=== PATIENT | male | born 1950 | race Caucasian/White ===

== ENCOUNTER 2017-05-06 15:53 | Inpatient (IN) ==
[~2017-05-06 15:53] MED LIST: *HR* Heparin 10,000 UNIT/10 ML VIAL ONE; 0.9 % Sodium Chloride 1,000 ML ONE; Heparin 1,000 UNITS/500 mL NS 500 ML ONE; Nitroglycerin 1,000 MCG/10 ML VIAL IV ONE
[2017-05-06] MEDS ORDERED: 0.9 % Sodium Chloride 1,000 ML ONE (15:58)
[2017-05-06] MEDS ORDERED: *HR* Midazolam HCl 2 MG/2 ML VIAL ONE (16:29)
[2017-05-06] MEDS ORDERED: Acetaminophen 325 MG TABLET PO PRN (17:17)
--- NOTE | 2017-05-06 17:37 | Invasive Diagnostic Lab Proc ---
Name: Enzo Broewr Date of Study: 05/06/2017 Date: 1950 Ht: 68.1in Medical Record#: [id number] Age: 66 Wt: 200.62lb Gender: Male BSA: 2.05 Order #: [id number] BMI: 30.41 Physicians Procedure Physician: Keshawn Rizo DO Referring MD: Referring MD: Staff Name Position Time In Diego Rice RN Mortgage Funder 04:07 PM Darlyn Ornelas RT (R) Scrub 04:07 PM Mark Anthony Zhang RT (R) Monitor 04:07 PM Indications Indication STEMI Procedures Performed Procedure PRQ CARD REVASC IN 1 VSL Pre-Procedure Checklist Informed consent is complete signed and on chart. H&P is on chart. ID band is on and ID verified with patient. Patient NPO for procedure The procedure was described for the patient and questions were answered. Blood Pressure: 142/111 ECG is on chart. Plan of Care Patient will tolerate the procedure without complications. Adequate level of comfort will be maintained. Hemodynamics will remain stable Patient will recover from procedure without complications. Respiratory function will be maintained. Cardiac rhythm will remain stable. Patient temperature will be maintained. Patient and/or family have verbalized understanding of the procedure. Patient Education Chief Complaint/Reason for Test: Cardiac Cath Developmental Category: Adult (18-64 years) Developmentally Appropriate for Age: Yes Learning Barriers: None Education Needs: Procedure Education Method: Verbal Information Taught: Cardiac Cath Educational Evaluation: Able to repeat information Intravenous Access Time IV Size Location DC'd Fluid/Drip Rate Units RN 04:21 PM 22g 1" Patent On Arrival Rt Antecubital 0.9NaCl 25 ml/hr Diego Rice RN Allergies No Known Allergies Vital Signs Time BP (mmHg) HR (bpm) O2 Sat. RR (bpm) LOC 04:20 PM 142 / 111 88 97 % 5 = Fully awake and oriented or at pre-proc level 04:20 PM / % 5 = Fully awake and oriented or at pre-proc level 04:35 PM / % 4 = Oriented but drowsy 04:50 PM / % 4 = Oriented but drowsy 04:26 PM 142 / 111 133 % 16 04:33 PM 152 / 92 94 97 % 32 04:38 PM 119 / 61 94 96 % 52 04:43 PM 146 / 90 91 98 % 24 04:48 PM 155 / 98 92 86 % 19 04:53 PM 172 / 92 86 93 % 16 04:58 PM 162 / 108 91 96 % 15 05:00 PM 137 / 79 91 94 % 19 05:05 PM 166 / 91 86 97 % 11 05:09 PM 139 / 92 87 97 % 7 05:05 PM / % 5 = Fully awake and oriented or at pre-proc level Procedural Medications Time Medication Dose Units Method Given By 04:26 PM Oxygen 2 L/min nasal cannula Diego Rice RN 04:30 PM Versed 1 mg Intravenous Diego Rice RN 04:31 PM Lidocaine 2% 10 ml Subcutaneous Keshawn Rizo DO 04:39 PM Lidocaine 2% 9 ml Subcutaneous Keshawn Rizo DO 04:49 PM Oxygen 4 L/min nasal cannula Diego Rice RN 04:49 PM Heparin 3000 units Intravenous Diego iRce RN 04:46 PM Versed 1 mg Intravenous Diego Rice RN 04:58 PM Nitroglycerin 100 mcg Intracoronary Keshawn Rizo DO ASA Classification: CLASS IV- Severe systemic that is constant threat to patient's life Horacio Score Preprocedure Postprocedure Activity 2- Moves 4 extremities sustained head lift Activity 2- Moves 4 extremities sustained head lift Circulation 2- SBP +/= 20 points of pre-anesthetic level Circulation 2- SBP +/= 20 points of pre-anesthetic level Consciousness 2- Awake and alert oriented x 3 Consciousness 2- Awake and alert oriented x 3 O2 Saturation 2- Able to maintain O2 satruation of 92% on room air O2 Saturation 2- Able to maintain O2 satruation of 92% on room air Respiratory 2- Able to deep breathe and cough well Respiratory 2- Able to deep breathe and cough well Total Score 10 Total Score 10 Contrast Agent: Isovue Diagnostic Contrast: 100 ml Total Contrast: 100 ml Fluoro Dose: 778 mGy Activated Clotting Time Time Seconds to Clot 04:49 PM 163 Procedure Log Time Note Enter By 04:07 PM Patient charges- Angio tray pack, Navilyst 3mm J, Pulse Oximetry and ACIST tubing and transducer 04:07 PM Diego Rice RN Position: Mortgage Funder Time in: 16:07 04:07 PM Darlyn Ornelas RT (R) Position: Scrub Time in: 16:07 04:07 PM Mark Anthony Zhang RT (R) Position: Monitor Time in: 16:07 [email or web address] 04:19 PM Pt arrived to [employer] 1 at 16:19 [email or web address] 04:20 PM Time: 16:20 Patient comfortable and pain free: No 10/10 chest pain [email or web address] 04:20 PM Time: 16:20LOC: 5 = Fully awake and oriented or at pre-proc level [email or web address] 04:20 PM Physician arrived 16:20 [email or web address] 04:20 PM Meet and greet completed 04:20 PM Sign in performed according to hospital policy. [email or web address] 04:20 PM Procedure start 16:20 [email or web address] 04:20 PM CathStat 04:20 PM ASA Class CLASS IV- Severe systemic that is constant threat to patient's life [email or web address] 04:20 PM Case Delayed No : PM nitro patch removed from left chest bw 04:22 PM Clinical Presentation: STEMI or equivalent bw 04:22 PM Hair removed from procedure site in procedure lab using clippers. Bilateral groin prepped with Chloraprep by Pretty Dean RN, safety strap applied then patient was draped. Skin intact. 04:25 PM Vitals capture started with the following parameters, Patient=Adult, Interval=5 min, Initial Ugoorxvd=251 mmHg, Deflation Rate=5 mmHg, Cuff placed on Left Arm 04:26 PM FQ=116 bpm, TVQE=159/111 mmhg, Resp=16 B/min 04:26 PM Time: 16:26 Oxygen on at 2 L/min per nasal cannula by Diego Rice RN 04:30 PM Time: 16:30 Versed 1 mg Intravenous Given by Diego Rice RN 04:31 PM Time out performed according to hospital policy [email or web address] 04:31 PM Pressure channel 2 zeroed. 04:31 PM Vitals capture stopped. 04:32 PM Time: 16:31 10 ml Lidocaine 2% to right groin Subcutaneous Given by Keshawn Rizo DO ilson 04:32 PM Vitals capture started with the following parameters, Patient=Adult, Interval=5 min, Initial Wazeibmj=734 mmHg, Deflation Rate=5 mmHg, Cuff placed on Left Arm 04:33 PM Micro-Introducer Kit utilized for sheath placement [email or web address] 04:33 PM HR=94 bpm, SPAC=530/92 mmhg, SpO2=97.0 %, Resp=32 B/min 04:35 PM Time: 16:20 Patient comfortable and pain free: No 10/10 chest pain [email or web address] 04:35 PM Time: 16:20LOC: 5 = Fully awake and oriented or at pre-proc level [email or web address] 04:38 PM Unsuccessful access attempt # 1 into the right Femoral artery. Manual pressure applied to achieve hemostasis.. wire would not advance [email or web address] 04:38 PM HR=94 bpm, TUYP=089/61 mmhg, SpO2=96.0 %, Resp=52 B/min 04:39 PM Time: 16:39 9 ml Lidocaine 2% to left groin Subcutaneous Given by Keshawn Rizo DO [email or web address] 04:41 PM difficult access [email or web address] 04:42 PM 5fr micro sheath left groin. [email or web address] 04:42 PM Access obtained by percutaneous puncture. 6Fr 10cm Terumo Chandler sheath placed in left Femoral artery. [id number] [email or web address] 04:43 PM 0.035 145cm Navilyst 3mmJ wire [id number] [email or web address] 04:43 PM 5Fr FR 4 catheter inserted over the wire DNC [email or web address] 04:43 PM HR=91 bpm, MLZV=145/90 mmhg, SpO2=98.0 %, Resp=24 B/min 04:44 PM Catheter selectively placed in left ventricle hand injected [email or web address] 04:45 PM Recorded Pressure: LV, HR=96, Condition=Condition 1 (Left Ventricle) LV 87/33/31 04:45 PM Recorded Pressure: LV, Ao, HR=75, Condition=Condition 1 (Left Ventricle) LV 100/35/39, (Aorta) Ao 106/29/66 04:45 PM RCA angiography performed in multiple views. [email or web address] 04:45 PM Coronary Dominance: right [email or web address] 04:46 PM Inflation device was opened. [email or web address] 04:46 PM Time: 16:46 Versed 1 mg Intravenous Given by Diego Rice RN [email or web address] 04:46 PM 6Fr JL4 Runway guide catheter was used to cannulate the PCI vessel successfully. reused? No [email or web address] 04:46 PM act drawn [email or web address] 04:47 PM LCA angiography performed in multiple views. [email or web address] 04:47 PM Recorded Pressure: Ao, HR=91, Condition=Condition 1 (Aorta) Ao 115/67/88 04:48 PM HR=92 bpm, ODEL=783/98 mmhg, SpO2=86.0 %, Resp=19 B/min 04:48 PM Guide catheter removed intact. [email or web address] 04:48 PM 6Fr XB LAD 3.5 Rhodell Bright-Tip guide catheter was used to cannulate the PCI vessel successfully. reused? No [email or web address] 04:49 PM Time: 16:49 Oxygen on at 4 L/min per nasal cannula by Diego Rice RN [email or web address] 04:49 PM At 16:49 the ACT was 163 seconds. [email or web address] 04:50 PM Time: 16:49 Heparin 3000 units Intravenous Given by Diego Rice RN [email or web address] 04:50 PM Time: 16:35 Patient comfortable and pain free: No [email or web address] 04:50 PM Time: 16:35LOC: 4 = Oriented but drowsy [email or web address] 04:50 PM Recorded Pressure: Ao, HR=91, Condition=Condition 1 (Aorta) Ao 117/66/88 04:52 PM Lesion found in 1st Marginal. Pre Stenosis: 99 Pre EMILIANA Flow: [email or web address] 04:52 PM Circumflex, Obtuse Marginal, Left Posterior Descending, and Left Posterolateral Coronary Arteries with 99 % stenosis. If graft is supplying this area, 0 % stenosis [email or web address] 04:52 PM .014 PT Graphix 300cm guide wire across target lesion- successful. reused? No [email or web address] 04:53 PM HR=86 bpm, DPDF=822/92 mmhg, SpO2=93.0 %, Resp=16 B/min 04:54 PM 2.5mm x 16mm Synergy drug-eluting stent across target lesion- successful Lot #[id number] [email or web address] 04:56 PM Stent deployed @ 15 oswaldo for 15 seconds [email or web address] 04:57 PM Stent balloon reinflated @ 15 oswaldo for 13 seconds [email or web address] 04:57 PM Recorded Pressure: Ao, HR=93, Condition=Condition 1 (Aorta) Ao 121/90/105 04:57 PM Stent delivery system removed intact. [email or web address] 04:58 PM HR=91 bpm, FUBT=737/108 mmhg, SpO2=96.0 %, Resp=15 B/min 04:58 PM Time: 16:58 Nitroglycerin 100 mcg Intracoronary Given by Keshawn Rizo DO [email or web address] 04:59 PM Guide wire removed intact. [email or web address] 04:59 PM Vitals capture stopped. 04:59 PM Vitals capture started with the following parameters, Patient=Adult, Interval=5 min, Initial Pujuqivz=941 mmHg, Deflation Rate=5 mmHg, Cuff placed on Left Arm 05:00 PM Recorded Pressure: Ao, HR=92, Condition=Condition 1 (Aorta) Ao 118/65/86 05:00 PM HR=91 bpm, YKEY=803/79 mmhg, SpO2=94.0 %, Resp=19 B/min 05:00 PM Guide catheter removed intact. [email or web address] 05:00 PM Recorded ECG: HR=92 Condition=Condition 1 05:02 PM Arterial sheath pulled, Mynx closure device used and was Successful [id number] S/N. [email or web address] 05:03 PM Isovue 370 - 200ml,1 Bottle(s) used. [email or web address] 05:05 PM Time: 16:50LOC: 4 = Oriented but drowsy [email or web address] 05:05 PM HR=86 bpm, HTEA=737/91 mmhg, SpO2=97.0 %, Resp=11 B/min 05:05 PM Time: 16:50 Patient comfortable and pain free: Yes [email or web address] 05:05 PM Procedure completed at 17:05 [email or web address] 05:05 PM Sign out completed: Radiation Dose 777.58 mGy Fluoro Time: 5.0 Isovue 370 - 200ml contrast 100 ml given by Keshawn Rizo DO. Complications: NoneCardiac Rehab Consult needed: YesConfirmed administered medications: Yes [email or web address] 05:06 PM Estimated Blood Loss: minimal [email or web address] 05:06 PM Post ECG NSR w/PAC's [email or web address] 05:07 PM Post Blood Pressure 166/91 [email or web address] 05:07 PM Information taught Cardiac Cath and PCI [email or web address] 05:07 PM Education needs Procedure, Plan of Care, and Disease Process [email or web address] 05:07 PM Learning barriers :Sedated [email or web address] 05:07 PM Education Methods Verbal [email or web address] 05:07 PM Education evaluation Needs further instruction [email or web address] 05:08 PM Delay to floor No [email or web address] 05:08 PM Family placed in consult room. [email or web address] 05:08 PM Complications: None [email or web address] 05:08 PM Fluoro Time: 5 [email or web address] 05:08 PM Isovue 370 - 200ml contrast 100 ml given by Keshawn Rizo DO. [email or web address] 05:08 PM Radiation Dose 777.58 mGy [email or web address] 05:09 PM Lesion found in Mid LAD. Pre Stenosis: 40 Pre EMILIANA Flow: [email or web address] 05:09 PM Mid/Distal Left Anterior Descending Coronary Artery and diagonal branches with 40% stenosis. If graft is supplying this area, 0 % stenosis [email or web address] 05:09 PM Lesion found in Distal Circumflex. Pre Stenosis: 40 Pre EMILIANA Flow: [email or web address] 05:09 PM Circumflex, Obtuse Marginal, Left Posterior Descending, and Left Posterolateral Coronary Arteries with 99 % stenosis. If graft is supplying this area, 0 % stenosis [email or web address] 05:09 PM HR=87 bpm, YOSX=266/92 mmhg, SpO2=97.0 %, Resp=7 B/min 05:10 PM Site status No bleeding/hematoma - Lt Groin as reported by Sites, Darlyn RT (R) at 17:10 [email or web address] 05:10 PM Opsite applied [email or web address] 05:10 PM Site status No bleeding/hematoma - Rt Groin as reported by Sites, Darlyn RT (R) at 17:10 [email or web address] 05:10 PM Opsite applied [email or web address] 05:12 PM Vitals capture stopped. 05:16 PM Report given to pantera VERONICA Pt taken to ICU Room #3. 17:16 [email or web address] 05:20 PM Time: 17:05 Patient comfortable and pain free: Yes [email or web address] 05:20 PM Time: 17:05LOC: 5 = Fully awake and oriented or at pre-proc level [email or web address] 05:22 PM 17:22 Post Pulses Bilateral DP & PT 1+ [email or web address] 05:31 PM Patient out of room: 17:31 [email or web address] Complications Complication None None Hemodynamics Pressures Site Systolic/A Wave Diastolic/V Wave Mean LV 87 33 31 LV 100 35 39 AO 106 29 66 AO 115 67 88 AO 117 66 88 AO 121 90 105 AO 118 65 86 Post Procedure Information Blood Pressure: 166/91 mmHg Rhythm: NSR w/PAC's Post procedural instructions were given Closure Device Time Device Success/Fail 05/06/2017 5:02:00 PM MynxGrip Successful Site Checks Time Location Status Staff Sheath In? Note 05:10 PM Lt Groin No bleeding/hematoma Sites, Darlyn RT (R) 05:10 PM Rt Groin No bleeding/hematoma Sites, Darlyn RT (R) Pulses Time Site Pre-Procedure Post-Procedure Note 5:22:00 PM Bilateral DP & PT 1+ Updated by Mark Anthony Zhang RT (R) on 05/06/2017 5:31:31 PM Mark Anthony Zhang RT electronically signed on 05/06/2017 5:31:52 PM with status of Final
[2017-05-06] MEDS: 0.9 % Sodium Chloride 1,000 ML IVC SCH (19:00)
--- NOTE | 2017-05-06 20:52 | Cardiology History & Physical ---
Date of Encounter: 05/06/17 Time of Encounter: 16:10 Assessment and Plan (1) STEMI (ST elevation myocardial infarction) Current Visit: No Status: Acute The assessment and plan as outlined above was discussed with the patient and/or family members who expressed understanding and agreement. All questions were answered. PT will undergo emergent LHC/poss for primary tx for STEMI, risks and benefits discussed here and in [facility], pt elects to proceed. Qualifiers: Involved coronary artery: left circumflex coronary artery Qualified Code(s) : I21.21 - ST elevation (STEMI) myocardial infarction involving left circumflex coronary artery (2) Hypertension Current Visit: Yes Status: Acute The assessment and plan as outlined above was discussed with the patient and/or family members who expressed understanding and agreement. All questions were answered. NOt clear how well controlled at home, bp elevated while pt in extremis this afternoon, will monitor on increased metoprolol. Qualifiers: Hypertension type: essential hypertension Qualified Code(s): I10 - Essential (primary) hypertension (3) Hyperlipidemia Current Visit: Yes Status: Acute The assessment and plan as outlined above was discussed with the patient and/or family members who expressed understanding and agreement. All questions were answered. Pt reports he is at goal on current dose of rosuvastatin; Qualifiers: Hyperlipidemia type: mixed hyperlipidemia Qualified Code(s): E78.2 - Mixed hyperlipidemia (4) Neuropathy Current Visit: Yes Status: Acute The assessment and plan as outlined above was discussed with the patient and/or family members who expressed understanding and agreement. All questions were answered. 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 (5) GERD with esophagitis Current Visit: Yes Status: Chronic The assessment and plan as outlined above was discussed with the patient and/or family members who expressed understanding and agreement. All questions were answered. Symptoms well controlled on PPI, rarely uses TUMS as needed. History of Present Illness Chief complaint: chest pain HPI: Mr. Brower is a 66 year old male who presented to [facility] complaining of 10/10 midsternal chest pain, sudden onset at rest, accompanied by nausea, shaking and shortness of breath, improved from 10 to 8/10 with sublingual ntg, and 8 mg morphine IV. Initial EKG showed acute lateral GA, pt given Brillinta and IV heparin, transferred emergently to [facility] for emergent LHC/ poss as primary tx for acute STEMI. He continued to have chest pain in route, pain 10/10 on arrival. He reports chest pain the same as with previous STEMI 2013, for which he underwent emergent PCI with JUAN in the Circumflex artery. He is active,, but limited by chronic back pain, has not experienced chest pain since 2014. Past Med Surg Social Fam HX - Past Medical History Medical history: coronary artery disease, hypertension Psychiatric history: no psych history - Past Surgical History Surgical History: angioplasty/stent, cholecystectomy, orthopedic, other - Social History Smoking Status: Former smoker Alcohol use: none Drug use: none - Family History Mother Living Status: Cause of : colon cancer Hx Family Cancer: Yes Brother Living Status: Still Living Hx Family Cancer: Yes (lung ca) Medications and Allergies Amlodipine Besylate 10 mg PO DAILY 05/06/17 [History] Aspirin [Lo-Dose Aspirin EC] 81 mg PO DAILY 05/06/17 [History] Benazepril HCl [Lotensin] 40 mg PO DAILY 05/06/17 [History] Famotidine [Pepcid] 40 mg PO DAILY 05/06/17 [History] Gabapentin [Neurontin] 600 mg PO TID 05/06/17 [History] Metoprolol [Lopressor] 25 mg PO BID 05/06/17 [History] Potassium Chloride [Klor-Con 10] 20 meq PO DAILY 05/06/17 [History] Rosuvastatin Calcium [Crestor] 10 mg PO DAILY 05/06/17 [History] hydroCHLOROthiazide [Hydrochlorothiazide] 25 mg PO DAILY 05/06/17 [History] 3 Allergy/AdvReac Type Severity Reaction Status Date / Time No Known Allergies Allergy Verified 05/06/17 15:37 All Systems Review: A 10-system review of systems was performed and is negative for pertinent findings except as documented above in the HPI. - Cardiovascular Cardiovascular: other (prior to 2 pm today.) - Respiratory Respiratory: cough - Gastrointestinal Gastrointestinal: abdominal pain, dysphagia, nausea - Genitourinary Genitourinary: nocturia - Musculoskeletal Musculoskeletal: abnormal gait, back pain, muscle cramps, myalgias, other ( bulging lumbar disc with right leg pain, improved with recent addition of gabepentin;. ) Physical Examination Vital Signs, Last 4 Hours Temp Pulse Resp BP Pulse Ox 05/06/17 20:00 82 16 139/93 96 05/06/17 19:47 97.9 F 05/06/17 19:00 86 14 128/82 96 05/06/17 18:21 91 18 126/73 94 05/06/17 18:06 88 20 133/92 94 05/06/17 17:57 89 05/06/17 17:51 89 19 132/89 95 05/06/17 17:36 98 F 92 16 133/84 94 General: Conversant, Other (in severe distress, shaking, anxious ) HEENT: Atraumatic, Normocephaly, Mucus Membranes Moist Neck: No JVD Cardiac: Reg Rate and Rhythm, Normal S1 and S2, No Murmur Lungs: Normal Breath Sounds, No Wheeze, Rales, Rhonchi Neuro: Alert and responsive, No focal deficits noted Abdomen: Soft Skin: No rashes noted on visualized skin Musculoskeletal: No Chest Wall Tenderness Extremities: No Clubbing, No Cyanosis, No Edema, Normal Pulses Results - EKG Interpretation EKG results cardiology: personally reviewed (Sinus tach with St segment elevation lateral leads consistent with lateral STEMI)
[2017-05-06] MEDS ORDERED: *HR* Morphine 2 MG/ML SYRINGE IVP ONE (21:33)
[2017-05-07] MEDS: 0.9 % Sodium Chloride 1,000 ML IVC SCH (02:42)
[2017-05-07 04:31] LABS: Basophils % 0.3 %; Eosinophils % 0.1 %; Hematocrit 42.1 % (37.5-50.1); Hemoglobin 14.3 g/dL (12.9-16.9); Immature Granulocytes % 0.2 % (0-4); Lymphocytes # 0.9 K/mcL (0.6-4.6); Mean Corpuscular Hemoglobin 28.7 pg (28.0-33.3); Mean Corpuscular Volume 84.5 fL (83.0-100.0); Mean Platelet Volume 11.8 fL (9.4-12.4); Monocytes # 0.8 K/mcL (0.0-1.3); Monocytes % 8.7 %; Neutrophils # 7.8 K/mcL (1.6-8.9); Platelet Count 203 K/mcL (140-400); Red Blood Count 4.98 M/mcL (4.19-5.50); Red Cell Distribution Width 13.2 % (11.5-14.5); Segmented Neutrophils % 81.7 %
[2017-05-07 04:40] LABS: BUN/Creatinine Ratio 10 (6-26); Blood Urea Nitrogen 13 mg/dL (8-26); Calcium 8.7 mg/dL (8.6-10.8); Carbon Dioxide 24 mEq/L (19-29); Chloride 104 mEq/L (98-109); Glucose 121 mg/dL (70-99); Osmolality,Calculated 293 (280-300); Potassium 3.4 mEq/L (3.5-4.5); Sodium 141 mEq/L (136-145); eGFR For African Americans > 60 (> 60); eGFR For Non-African Americans 53 (> 60)
[2017-05-07] MEDS ORDERED: *HR* Morphine 2 MG/ML SYRINGE IVP PRN ×2 (05:53→08:57)
[2017-05-07] MEDS ORDERED: Nitroglycerin 0.4 MG TAB.SUBL SL PRN ×2 (05:54→08:57)
--- NOTE | 2017-05-07 07:44 | Pulmonology Consult Note ---
<Kaylyn Stark - Last Filed: 05/07/17 08:31> Date of Encounter: 05/07/17 Time of Encounter: 07:41 Assessment and Plan (1) STEMI (ST elevation myocardial infarction) Current Visit: Yes Status: Acute Patient s/p LHC on 05/06 with JUAN in the obtuse marginal. Per patient, this is his 4th stent. -FU echocardiogram this morning. -continue ASA and brillinta. -We will sign off at this point. Thank you. Qualifiers: Involved coronary artery: other coronary artery Qualified Code(s): I21.29 - ST elevation (STEMI) myocardial infarction involving other sites (2) Hypertension Current Visit: Yes Status: Acute Continue home medications: -lopressor 25 mg PO BID. -Lisinopril 40 mg PO Daily. -HCtZ 25 mg PO daily -amlodipine 10 mg PO daily Qualifiers: Hypertension type: essential hypertension Qualified Code(s): I10 - Essential (primary) hypertension (3) Hyperlipidemia Current Visit: Yes Status: Acute Continue Simvastatin. Qualifiers: Hyperlipidemia type: mixed hyperlipidemia Qualified Code(s): E78.2 - Mixed hyperlipidemia (4) GERD with esophagitis Current Visit: Yes Status: Chronic -Continue pepcid. History of Present Illness Consult date: 05/07/17 Requesting physician: Keshawn Rizo Reason for consult: other (critical care management) Chief complaint: STEMI History of present illness: Mr. Brower is a 66 yo male with PMHx of CAD, HTN, s/p CABG with 3 stents who presented to [place] [facility] complaining of 10/10 midsternal CP, sudden onset while at rest which was accompanied by SOB and nausea. Patient received sublingual NTG and 8MG morphine IV which improved his pain. Initial EKG showed lateral ID. Patient was started on brillinta and IV heparin and transferred to [facility] [place] for emergent LHC. Upon arrival to [facility], patients chest pain was once again 10/10. Per patient, he had already had 3 other stents placed in 2013. He underwent emergent LHC yesterday and had 1 additional JUAN placed in the obtuse marginal which had severe one vessel CAD. Patient was found to have mild to moderate LV dysfunction with EF 55% during the procedure. He is scheduled for echocardiogram this morning. This morning, patient is resting comfortably. He states his CP and SOB has resolved. He did report some episodes of SOB and chest pain overnight, however, he denies these symptoms this morning. Past Med Surg Social Fam HX - Past Medical History Attestation: Yes The following information was validated with the patient. Medical history: coronary artery disease (Patient states he had 3 stents placed in 2013.), hypertension Psychiatric history: no psych history - Past Surgical History Surgical History: angioplasty/stent, cholecystectomy, orthopedic, other - Social History Smoking Status: Former smoker Alcohol use: none Drug use: none - Family History Mother Living Status: Cause of : colon cancer Hx Family Cancer: Yes Brother Living Status: Still Living Hx Family Cancer: Yes (lung ca) Medications and Allergies Amlodipine Besylate 10 mg PO DAILY 05/06/17 [History] Aspirin [Lo-Dose Aspirin EC] 81 mg PO DAILY 05/06/17 [History] Benazepril HCl [Lotensin] 40 mg PO DAILY 05/06/17 [History] Gabapentin [Neurontin] 600 mg PO TID 05/06/17 [History] Metoprolol [Lopressor] 25 mg PO BID 05/06/17 [History] Potassium Chloride [Klor-Con 10] 20 meq PO DAILY 05/06/17 [History] hydroCHLOROthiazide [Hydrochlorothiazide] 25 mg PO DAILY 05/06/17 [History] Pantoprazole Sodium 40 mg PO DAILY 05/07/17 [History] Rosuvastatin Calcium [Crestor] 20 mg PO HS 05/07/17 [History] 3 Allergy/AdvReac Type Severity Reaction Status Date / Time No Known Allergies Allergy Verified 05/06/17 15:37 All Systems: A 10-system review of systems was performed and is negative for pertinent findings except as documented above in the HPI. - Constitutional Constitutional: no anorexia, no chills, no fever(s), no night sweats - EENT Nose, mouth and throat: no nasal congestion, no neck pain - Cardiovascular Cardiovascular: no chest pain, no chest pain at rest, no diaphoresis, no dyspnea , no edema, no radiating jaw, neck or arm pain - Respiratory Respiratory: no cough, no dyspnea, no chest congestion - Gastrointestinal Gastrointestinal: no abdominal pain, no diarrhea - Endocrine Endocrine: no palpitations Physical Examination Vital Signs: Vital Signs, Last 4 Hours Temp Pulse Resp BP Pulse Ox 05/07/17 07:27 98.6 F 05/07/17 07:00 65 16 123/70 97 05/07/17 06:00 66 14 143/91 97 05/07/17 05:00 69 16 130/75 95 05/07/17 04:00 98.3 F 82 17 152/91 94 General appearance: no acute distress Eyes: nonicteric ENT: oropharynx moist Effort: normal Inspection: normal Auscultation: bilateral: clear Cardiovascular: regular rate and rhythm Gastrointestinal: normoactive bowel sounds, soft, non-tender, non-distended Integumentary: normal Extremities: no cyanosis, no edema, pulses normal Musculoskeletal: no deformities normal mental status, non-focal exam mood appropriate, affect normal Results - Laboratory Findings CBC and BMP: 05/07/17 04:05 05/07/17 04:10 Abnormal lab findings: Abnormal lab results Potassium 3.4 mEq/L (3.5-4.5) L 05/07/17 04:10 Creatinine 1.36 mg/dL (0.72-1.25) H 05/07/17 04:10 Est GFR (Non-Af Amer) 53 (> 60) L 05/07/17 04:10 Glucose 121 mg/dL (70-99) H 05/07/17 04:10 POC Glucose 129 (58-89) H 05/06/17 17:41 Troponin I > 50.00 ng/mL (0-0.03) H* 05/07/17 04:10 - Clinical Findings Intake & Output: Intake & Output 05/06/17 05/06/17 05/07/17 15:59 23:59 07:59 Intake Total 0 / 0 1320 / 1320 Output Total 0 / 0 1275 / 1275 Balance 0 / 0 45 / 45 Weight 90.718 kg 90.5 kg Consult Discharge Plan - Plan Referrals: NONE,PCP [Primary Care Provider] - <Trav Castro W - Last Filed: 05/07/17 09:27> Date of Encounter: 05/07/17 All Systems: A 10-system review of systems was performed and is negative for pertinent findings except as documented above in the HPI. Physical Examination Vital Signs: Vital Signs, Last 4 Hours Temp Pulse Resp BP Pulse Ox 05/07/17 08:00 62 14 96 05/07/17 07:27 98.6 F 05/07/17 07:00 65 16 123/70 97 05/07/17 06:00 66 14 143/91 97 Results - Laboratory Findings CBC and BMP: 05/07/17 04:05 05/07/17 04:10 Abnormal lab findings: Abnormal lab results Potassium 3.4 mEq/L (3.5-4.5) L 05/07/17 04:10 Creatinine 1.36 mg/dL (0.72-1.25) H 05/07/17 04:10 Est GFR (Non-Af Amer) 53 (> 60) L 05/07/17 04:10 Glucose 121 mg/dL (70-99) H 05/07/17 04:10 POC Glucose 129 (58-89) H 05/06/17 17:41 Troponin I > 50.00 ng/mL (0-0.03) H* 05/07/17 04:10 - Clinical Findings Intake & Output: Intake & Output 05/06/17 05/07/17 05/07/17 23:59 07:59 15:59 Intake Total 0 / 0 1320 / 1320 860 / 860 Output Total 0 / 0 1275 / 1275 Balance 0 / 0 45 / 45 860 / 860 Weight 90.5 kg - Attending Attestation I examined this patient and my medical decision-making was reviewed with the Resident Physician. I agree with the documented findings, disposition and treatment plan as described except to the extent set forth below. We independently had [id number] contact with the patient Patient seen and examined at bedside Labs, radiology, chart personally reviewed. Management was reviewed during multidisciplinary critical care rounds. 66-year-old gentleman with acute coronary syndrome status post drug-eluting stent Former heavy smoker but denies any significant day-to-day shortness of breath and leads a relatively active lifestyle Significant obesity and loud snorer possible sleep-disordered breathing Recs: Defer management of acute coronary syndrome and ongoing coronary artery disease to cardiology service was to primary treating group Recommend outpatient PFTs PSG for further evaluation of possible obstructive lung disease and sleep-disordered breathing Dietary modification/weight loss MIREYA MDI at time of discharge to use on an as-needed basis No acute ICU need Pulmonary will sign off
--- NOTE | 2017-05-07 08:19 | Cardiology Progress Note ---
Date of Encounter: 05/07/17 Time of Encounter: 08:15 Assessment and Plan (1) STEMI (ST elevation myocardial infarction) Current Visit: Yes Status: Acute Per Cardiology: Transfer from [facility]. Status post emergent left heart catheterization with PTCA and drug-eluting stent to [facility] 99% lesion. Has remaining nonobstructive mid LAD 40% and distal circumflex 40% lesions. Troponin greater than 50. Currently chest pain-free. Echo pending. On aspirin, Brilinta, statin, beta joann, CARLY inhibitor. Appreciate pulmonology evaluation, aware of sign off. Cardiac rehabilitation placed. Plan to transfer to floor today with potential discharge tomorrow. Qualifiers: Involved coronary artery: other coronary artery Qualified Code(s): I21.29 - ST elevation (STEMI) myocardial infarction involving other sites Discussion w patient/family: The assessment and plan as outlined above was discussed with the patient and/or family members who expressed understanding and agreement. All questions were answered. Thank you for involving us in the care of your patient. Please call with any questions. Subjective Principal diagnosis: STEMI Interval history: Patient denies any chest pain, shortness of breath, palpitations. Reports history of smoking half a pack per day for 45 years, quit in 2008. The active bleeding or blood loss. Reports bilateral mild groin soreness. Objective Vital Signs, Last 4 Hours Temp Pulse Resp BP Pulse Ox 05/07/17 08:00 75 14 96 05/07/17 07:27 98.6 F 05/07/17 07:00 65 16 123/70 97 05/07/17 06:00 66 14 143/91 97 05/07/17 05:00 69 16 130/75 95 General: Conversant, No Apparent Distress HEENT: Atraumatic, Normocephaly, Mucus Membranes Moist Neck: No JVD, Normal carotid pulses Cardiac: Reg Rate and Rhythm, Normal S1 and S2, No Murmur Lungs: Normal Breath Sounds, No Wheeze, Rales, Rhonchi Neuro: Alert and responsive, No focal deficits noted Abdomen: Soft, Non-Tender Skin: No rashes noted on visualized skin, Other (Bilateral groin sites and intact, no hematoma, no bleeding, no drainage, no ecchymosis, bilateral dorsalis pedis and PT pulses 2+ palp) Musculoskeletal: No Chest Wall Tenderness Extremities: No Clubbing, No Cyanosis, No Edema, Normal Pulses Results 05/07/17 04:05 05/07/17 04:10 Lab Results Laboratory Tests 05/06/17 05/07/17 05/07/17 15:22 04:10 04:10 Potassium 3.4 L Creatinine 1.60 H 1.36 H Est GFR (Non-Af Amer) 53 L Troponin I > 50.00 H* Active Medications Acetaminophen (Tylenol) 650 mg PO Q6HR PRN PRN Reason: Mild Pain Stop: 11/05/17 17:18 Last Admin: 05/07/17 02:42 Dose: 650 mg Amlodipine Besylate (Norvasc) 10 mg PO DAILY JENNIFER Stop: 11/06/17 09:01 Last Admin: 05/07/17 08:13 Dose: 10 mg Aspirin (Aspirin Ec) 81 mg PO DAILY JENNIFER Stop: 11/06/17 09:01 Last Admin: 05/07/17 08:11 Dose: 81 mg Famotidine (Pepcid) 40 mg PO DAILY JENNIFER Stop: 11/06/17 09:01 Last Admin: 05/07/17 08:13 Dose: 40 mg Gabapentin (Neurontin) 600 mg PO TID JENNIFER Stop: 11/06/17 09:01 Last Admin: 05/07/17 08:12 Dose: 600 mg Hydrochlorothiazide (Hydrochlorothiazide) 25 mg PO DAILY JENNIFER PRN Reason: Protocol Stop: 11/06/17 09:01 Last Admin: 05/07/17 08:13 Dose: 25 mg Sodium Chloride (0.9 % Sodium Chloride) 1,000 mls @ 100 mls/hr IVC .Q10H JENNIFER Stop: 11/05/17 17:31 Last Admin: 05/07/17 02:42 Dose: 100 mls/hr Lisinopril (Zestril) 40 mg PO DAILY JENNIFER Stop: 11/06/17 09:01 Last Admin: 05/07/17 08:13 Dose: 40 mg Metoprolol Tartrate (Lopressor) 25 mg PO BID JENNIFER Stop: 11/06/17 09:01 Last Admin: 05/07/17 08:12 Dose: 25 mg Morphine Sulfate (Morphine Sulfate) 2 mg IVP Q4HR PRN PRN Reason: Chest Pain Stop: 11/06/17 08:01 Nitroglycerin (Nitroglycerin) 0.4 mg SL Q5MIN PRN PRN Reason: Chest Pain Stop: 11/06/17 05:55 Potassium Chloride (Potassium Chloride) 20 meq PO DAILY JENNIFER Stop: 11/06/17 09:01 Last Admin: 05/07/17 08:11 Dose: 20 meq Simvastatin (Zocor) 40 mg PO DAILY JENNIFER Stop: 11/06/17 09:01 Last Admin: 05/07/17 08:12 Dose: 40 mg Ticagrelor (Brilinta) 90 mg PO BID [facility] Stop: 11/06/17 09:01 Last Admin: 05/07/17 08:11 Dose: 90 mg - Imaging and Cardiology Echo: pending Cardiac cath: report reviewed - EKG Interpretation EKG results cardiology: other (SR on tele, avg hr 73, 3 beat NSVT noted, brief epsiode atrial tach) Consult Discharge Plan - Plan Referrals: NONE,PCP [Primary Care Provider] -
[2017-05-07] MEDS ORDERED: Acetaminophen 325 MG TABLET PO PRN (08:57)
[2017-05-07] MEDS ORDERED: Aspirin Enteric Coated 81 MG Tablet PO SCH (09:00)
[2017-05-07] MEDS ORDERED: hydroCHLOROthiazide 25 MG TABLET PO SCH (09:00)
[2017-05-07] MEDS ORDERED: amLODIPine 5 MG TABLET PO SCH (09:00)
[2017-05-07] MEDS ORDERED: Lisinopril 20 MG TABLET PO SCH (09:00)
[2017-05-07] MEDS ORDERED: Famotidine 20 MG TABLET PO SCH (09:00)
[2017-05-07] MEDS ORDERED: *HR* Ticagrelor 90 MG TABLET PO SCH (09:00)
[2017-05-07] MEDS ORDERED: Gabapentin 300 MG CAPSULE PO SCH (09:00)
[2017-05-07] MEDS: Aspirin Enteric Coated 81 MG Tablet PO SCH (09:40)
[2017-05-07] MEDS: hydroCHLOROthiazide 25 MG TABLET PO SCH (09:40)
[2017-05-07] MEDS: amLODIPine 5 MG TABLET PO SCH (09:41)
[2017-05-07] MEDS: Gabapentin 300 MG CAPSULE PO SCH ×3 (09:41→20:25)
[2017-05-07] MEDS: Famotidine 20 MG TABLET PO SCH (09:41)
[2017-05-07] MEDS: *HR* Ticagrelor 90 MG TABLET PO SCH ×2 (09:42→20:24)
[2017-05-07] MEDS: Lisinopril 20 MG TABLET PO SCH (09:42)
--- NOTE | 2017-05-07 18:52 | Electrocardiograph Report ---
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
--- NOTE | 2017-05-07 18:58 | Electrocardiograph Report ---
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
[2017-05-08 04:23] VITALS: BP 111/67
[2017-05-08] MEDS: Lisinopril 20 MG TABLET PO SCH (07:53)
[2017-05-08] MEDS: Famotidine 20 MG TABLET PO SCH (07:54)
[2017-05-08] MEDS: hydroCHLOROthiazide 25 MG TABLET PO SCH (07:54)
[2017-05-08] MEDS: *HR* Ticagrelor 90 MG TABLET PO SCH (07:54)
[2017-05-08] MEDS: Gabapentin 300 MG CAPSULE PO SCH (07:58)
[2017-05-08] MEDS: Aspirin Enteric Coated 81 MG Tablet PO SCH (07:59)
[2017-05-08] MEDS: amLODIPine 5 MG TABLET PO SCH (07:59)
--- NOTE | 2017-05-08 10:09 | Discharge Summary ---
Date of Encounter: 05/08/17 Time of Encounter: 10:00 - Discharge Diagnosis (1) STEMI (ST elevation myocardial infarction) Priority: Primary Status: Acute Comments: S/p STEMI Qualifiers: Involved coronary artery: other coronary artery Qualified Code(s): I21.29 - ST elevation (STEMI) myocardial infarction involving other sites - Discharge Medications Prescriptions: Nitroglycerin 0.4 mg SL Q5MIN PRN #30 tab.subl PRN Reason: Chest Pain Ticagrelor [Brilinta] 90 mg PO BID #60 tablet Home Medications: Amlodipine Besylate 10 mg PO DAILY 05/06/17 [History] Aspirin [Lo-Dose Aspirin EC] 81 mg PO DAILY 05/06/17 [History] Benazepril HCl [Lotensin] 40 mg PO DAILY 05/06/17 [History] Gabapentin [Neurontin] 600 mg PO TID 05/06/17 [History] Metoprolol [Lopressor] 25 mg PO BID 05/06/17 [History] Potassium Chloride [Klor-Con 10] 20 meq PO DAILY 05/06/17 [History] hydroCHLOROthiazide [Hydrochlorothiazide] 25 mg PO DAILY 05/06/17 [History] Pantoprazole Sodium 40 mg PO DAILY 05/07/17 [History] Rosuvastatin Calcium [Crestor] 20 mg PO HS 05/07/17 [History] Nitroglycerin 0.4 mg SL Q5MIN PRN #30 tab.subl 05/08/17 [Rx] Ticagrelor [Brilinta] 90 mg PO BID #60 tablet 05/08/17 [Rx] Allergies/Adverse Reactions: 3 Allergy/AdvReac Type Severity Reaction Status Date / Time No Known Allergies Allergy Verified 05/06/17 15:37 Procedures/tests Complete & Pending: Procedures Performed prior 72 hours Category Date Time Status CL Cardiac Catheterization [CL] Stat County Attorney 05/06/17 15:56 Completed ECG 12 lead ECG [ECG] Routine Y 05/06/17 17:17 Completed EKG [ECG 12 lead ECG] [ECG] Stat Y 05/07/17 05:01 Completed EV echocardiogram Routine Y 05/07/17 21:08 Completed Date of admission: 05/06/17 17:40 Primary care physician: PCP NONE Consults: 05/07/17 08:46 Consult to Cardiac Rehabilitation-Phase1 [CONS] Routine Comment: Reason for Consult: STEMI, s/p stent, CAD Call Completed: No Discharging clinician: Allan Ng Anticipated date of discharge: 05/08/17 - Patient Status Disposition: Home, Self-Care Condition: Fair Functional capacity at discharge: independent ambulation Overall status at discharge: patient is progressing back to baseline - Discharge Instructions Follow Up With: NONE,PCP [Primary Care Provider] - Additional Instructions: RISK FACTORS: STOP SMOKING: If you smoke, STOP. Smoking or tobacco use significantly increases your risk of heart disease because nicotine causes the arteries to narrow or constrict. It also causes fats to stick to the artery. Your chances of having a heart attack are greatly increased if you continue to smoke. For more information, call the education line for smoking cessation [id number] EAT A LOW FAT/CHOLESTEROL/SODIUM DIET: This diet may help reduce your chances of having a heart attack. LIFTING: Avoid lifting anything more than 10 pounds for 5-7 days Prior to straining, laughing, sneezing and/or coughing, apply manual pressure directly over insertion site. ACTIVITY: You may walk or climb stairs as tolerated You can resume sexual activity as tolerated In general, you are encouraged to engage in a minimum of 30 minutes or more of moderate intensity physical activity, such as brisk walking, daily or at least 3 -4 times weekly BATHING Do not submerge the site into water (bath tub, hot tub, swimming pool) for 1 week. This can be a source for infection into the blood stream. You may shower after 24 hours SITE CARE: After 24 hours, you may remove the dressing and leave the site open to air. Keep the site clean and dry. Clean gently and pat dry. You can expect bruising and tenderness that gradually resolve within a week or two. Return to work as instructed per your physician Resume driving as instructed per physician Keep all scheduled follow up appointments Resume medications as instructed IMPORTANT: If prescribed a Platelet Aggregation Inhibitor such as, Plavix, Brilinta or Effient: Duration of therapy is minimum one year These medications are often used in combination with Aspirin in prevention of future heart attacks Never discontinue unless consult with your Agency Legal Counsel STROKE (CVA) Risk factors for a stroke are: Age, cigarette smoking, diabetes, excessive alcohol consumption, family history, high blood pressure, overweight, physical inactivity, prior stroke, heart attack, diagnosis of carotid artery stenosis or other artery disease. Warning signs: Sudden numbness or weakness of the face, arm or leg; especially on one side of the body, sudden confusion, trouble speaking or understanding, sudden trouble seeing in one or both eyes, sudden trouble walking, dizziness, loss of balance or coordination, sudden severe headache with no cause. Call 911 or go to the Emergency Room. CONGESTIVE HEART FAILURE: If you have been diagnosed with Congestive Heart Failure (CHF) and your symptoms return, make an appointment with your physician Weigh yourself daily. Notify your physician if you have a weight gain of two or more pounds in one day or five or more pounds in one week. If you experience any difficulty breathing, please call 911 BLEEDING: Although the risk of bleeding is minimal, it can happen. If you have any bleeding from the site, apply firm pressure above the puncture site for 10-15 minutes. If the bleeding does not stop, continue manual pressure and call 911 Contact your physician if: You develop a fever greater than 101 degrees Fahrenheit Your site becomes reddened or has any drainage You have an increase in pain or burning at the site or if a large knot forms at the site. If you experience chest pain, shortness of breath, dizziness, or extreme tiredness, stop the activity and rest. Please notify your physicians office if you experience any of these symptoms and they are not relieved by rest please call 911! - Diet and Activity Diet: diabetic diet, low fat, low cholesterol, low salt diet - Hospital Course Hospital course: Mr. Brower is a 66 year old male transferr from [facility] for STEMI. Status post emergent left heart catheterization with PTCA and drug-eluting stent to [facility] 99% lesion. Has remaining nonobstructive mid LAD 40% and distal circumflex 40% lesions. Troponin greater than 50. Echo showed EF 50-55%, no significant valvular dysfunction. No arrhythmias noted on telemetry. Currently chest pain- free. Prepping for discharge home today in stable condition. All questions answered. Education provided regarding importance of continuing aspirin and Brilinta uninterrupted for at least one year unless directed by cardiology. Education provided regarding post cath care and activity. - Time Spent with Patient Total time spent providing and/or coordinating discharge services: Less than 30 minutes Physical Examination Vital Signs, Last 4 Hours Temp Pulse 05/08/17 07:35 70 05/08/17 07:34 98.0 F ECHO 05/2017 Impressions: LVEF 50-55%. Normal LV chamber size and overall function. Mild concentric left ventricular hypertrophy. Mild segmental left ventricular systolic dysfunction. Mild left ventricular diastolic dysfunction. Normal right ventricular structure and function. Unable to estimate RVSP due to lack of TR jet. No significant valvular dysfunction. General: Conversant, No Apparent Distress HEENT: Atraumatic, Normocephaly, Mucus Membranes Moist Neck: No JVD, Normal carotid pulses Cardiac: Reg Rate and Rhythm, Normal S1 and S2, No Murmur Lungs: Normal Breath Sounds, No Wheeze, Rales, Rhonchi Neuro: Alert and responsive, No focal deficits noted Abdomen: Soft, Non-Tender Skin: No rashes noted on visualized skin, Other (Bilateral groin site mild ecchyomosis) Musculoskeletal: No Chest Wall Tenderness Extremities: No Clubbing, No Cyanosis, No Edema, Normal Pulses - VTE Reasons for not Prescribing Prophylaxis: Treatment not Indicated - Low risk for VTE Documentation of Mechanical Device: Intermittent pneumatic compression device
== END 2017-05-08 12:11 | disposition home or self-care (01) | DRG 247 ==
LOC: ICNU 17:40
PROVIDERS: ADMIT Internal Medicine Cardiovascular Disease; ATTEND Internal Medicine Cardiovascular Disease